=== PATIENT | male | born 1960 | race Caucasian/White ===

== ENCOUNTER → 2017-03-29 | Outpatient (CLI) | payer OTHER ==
[2017-03-29 07:38] LABS: ALKALINE PHOSPHATASE 76 U/L (46-116); ALT/SGPT 26 U/L (16-63); AST/SGOT 14 U/L (15-37); BILIRUBIN TOTAL 0.8 mg/dL (0.20-1.00); CARBON DIOXIDE 30.7 mmol/L (21-32); CHLORIDE SERUM 104 mmol/L (98-107); CHOLESTEROL 184 mg/dL (<200); CHOLESTEROL/HDL RATIO 5.4; CREATININE SERUM 1.1 mg/dL (0.7-1.3); GFR1 > 60 mL/min; GLUCOSE SERUM 111 mg/dL (74-106); HDL CHOLESTEROL 34 mg/dL (40-60); POTASSIUM SERUM 4.4 mmol/L (3.5-5.1); SODIUM SERUM 141 mmol/L (136-145); TOTAL PROTEIN, SERUM 7.6 g/dL (6.4-8.2); TRIGLYCERIDES 210 mg/dL (<150)
[2017-03-29 07:42] LABS: BASOPHIL % 0.6 % (0-2); PLATELET COUNT 249 x10^3mcL (130-400); RED CELL DISTRIBUTION WIDTH 12.7 % (11.5-14.5)
[2017-03-29 07:44] LABS: FREE T4 1.09 ng/dL (0.76-1.46); T4(THYROXINE) 8.6 ug/dL (4.7-13.3)
== END | disposition home or self-care (01) ==
LOC: LB 07:00
PROVIDERS: Family Medicine
DX: E78.5 Hyperlipidemia, unspecified (principal); I10 Essential (primary) hypertension; I42.0 Dilated cardiomyopathy
CPT/HCPCS: 84439

== ENCOUNTER 2019-06-13 10:24 | Emergency (ER) | payer OTHER ==
[~2019-06-13] VITALS: Ht 177.8 cm; Wt 108.4 kg
[2019-06-13 10:32] VITALS: Ht 177.8 cm; Wt 108.4 kg
[2019-06-13 11:44] VITALS: BP 125/77
== END 2019-06-13 11:49 | disposition home or self-care (01) ==
LOC: ED 10:24
DX: G51.0 Bell's palsy (principal); M54.2 Cervicalgia

== ENCOUNTER → 2019-11-23 | Outpatient (CLI) | payer OTHER ==
[2019-11-23 09:21] LABS: BASOPHIL % 0.6 % (0-2); PLATELET COUNT 236 x10^3mcL (130-400); RED CELL DISTRIBUTION WIDTH 12.2 % (11.5-14.5)
[2019-11-23 09:26] LABS: microscopic required? NO
[2019-11-23 09:49] LABS: ALKALINE PHOSPHATASE 75 U/L (46-116); ALT/SGPT 24 U/L (16-63); AST/SGOT 17 U/L (15-37); BILIRUBIN TOTAL 0.6 mg/dL (0.20-1.00); CALCIUM 9.4 mg/dL (8.5-10.1); CARBON DIOXIDE 28.3 mmol/L (21-32); CHLORIDE SERUM 106 mmol/L (98-107); GFR1 > 60 mL/min; GLUCOSE SERUM 107 mg/dL (74-106); POTASSIUM SERUM 4.3 mmol/L (3.5-5.1); SODIUM SERUM 142 mmol/L (136-145); TOTAL PROTEIN, SERUM 7.5 g/dL (6.4-8.2)
[2019-11-23 10:00] LABS: CHOLESTEROL 237 mg/dL (<200); CHOLESTEROL/HDL RATIO 7.4; HDL CHOLESTEROL 32 mg/dL (40-60); TRIGLYCERIDES 206 mg/dL (<150)
[2019-11-23 10:40] LABS: UA SPECIFIC GRAVITY 1.025 (1.005-1.035); urine erythrocyte NEGATIVE (NEGATIVE)
== END | disposition home or self-care (01) ==
LOC: LB 08:49
DX: Z00.01 Encounter for general adult medical examination with abnormal findings (principal)
CPT/HCPCS: 84153